=== PATIENT | female | born 1965 | race Caucasian/White ===

== ENCOUNTER 2018-11-30 07:31 | Day surgery (SDC) | payer OTHER ==
[2018-11-30] MEDS ORDERED: LIDOCAINE 2% (SDV) 5 ML INJ (09:04)
[2018-11-30] MEDS ORDERED: PROPOFOL 200 MG INJ (09:04)
[2018-11-30] MEDS ORDERED: PROPOFOL 60 ML (09:04)
== END 2018-11-30 10:09 | disposition home or self-care (01) ==
LOC: GIL 07:31
DX: K21.9 Gastro-esophageal reflux disease without esophagitis (principal); K29.60 Other gastritis without bleeding; R19.5 Other fecal abnormalities
CPT/HCPCS: 43239; 84703; 88305; 88312